=== PATIENT | female | born 1950 | race Caucasian/White ===

== ENCOUNTER → 2017-12-23 | Outpatient (CLI) | payer MEDICARE, BC ==
[~2017-12-23] MED LIST: CALC-534 PO; CHOL200059 PO; GLUC500T11 PO; KRIL500C PO; LIDOCAINE 1%-EPI 1:100K, 20ML ONE; ROSU5TAB PO; SODIUM BICARBONATE 4.0%, 5ML ONE; TRIA1CAP PO
== END | disposition home or self-care (01) ==
LOC: CFH 08:21
PROVIDERS: ATTEND Surgery
DX: C50.212 Malignant neoplasm of upper-inner quadrant of left female breast (principal); R59.1 Generalized enlarged lymph nodes
CPT/HCPCS: 19285; 77065; J3490

== ENCOUNTER 2017-12-27 09:03 | Day surgery (SDC) | payer MEDICARE, BC ==
[~2017-12-27] VITALS: Ht 165.1 cm; Wt 81.1 kg
[~2017-12-27 09:03] MED LIST changes: +BUPIVACAINE/PF-EPI 0.5% 1:200K ONE; -CALC-534 PO; -CHOL200059 PO; -GLUC500T11 PO; +ISOSULFAN BLUE 10 MG/ML, 5ML IV ONE; -KRIL500C PO; -LIDOCAINE 1%-EPI 1:100K, 20ML ONE; -ROSU5TAB PO; -SODIUM BICARBONATE 4.0%, 5ML ONE; -TRIA1CAP PO
[2017-12-27] MEDS ORDERED: LACTATED RINGERS 1,000 ML IV SCH (10:10)
[2017-12-27 10:21] VITALS: BP 132/84
[2017-12-27] MEDS ORDERED: GABAPENTIN 300 MG CAPSULE PO ONE (10:30)
[2017-12-27] MEDS ORDERED: OXYcodone IR 5MG TABLET PO ONE (10:30)
[2017-12-27] MEDS ORDERED: SCOPOLAMINE PATCH, 1.5MG PATCH.TD72 TD ONE (10:30)
[2017-12-27] MEDS ORDERED: ACETAMINOPHEN 500 MG TABLET PO ONE (10:30)
[2017-12-27] MEDS ORDERED: KRIL500C PO (10:38)
[2017-12-27] MEDS ORDERED: ROSU5TAB PO (10:38)
[2017-12-27] MEDS ORDERED: TRIA1CAP PO (10:38)
[2017-12-27] MEDS ORDERED: CALC-534 PO (10:38)
[2017-12-27] MEDS ORDERED: GLUC500T11 PO (10:38)
[2017-12-27] MEDS ORDERED: CHOL200059 PO (10:38)
[2017-12-27] MEDS ORDERED: FENTANYL PF 250 MCG/5ML ONE (12:08)
[2017-12-27] MEDS ORDERED: hydrALAzine 20 MG/ML, 1ML IV PRN (13:30)
[2017-12-27] MEDS ORDERED: LABETALOL 5MG/ML, 20ML IV PRN (13:30)
[2017-12-27] MEDS ORDERED: HALOPERIDOL 5 MG/ML IV PRN (13:30)
[2017-12-27] MEDS ORDERED: DIPHENHYDRAMINE 50 MG/ML, 1ML IVPush PRN (13:30)
[2017-12-27] MEDS ORDERED: PROMETHAZINE 25 MG/ML, 1ML IV PRN (13:30)
[2017-12-27] MEDS ORDERED: FENTANYL PF 100 MCG/2ML IV PRN (13:30)
[2017-12-27] MEDS ORDERED: OXYcodone 5 MG/5 ML ORAL.SOL UDC PO PRN (13:30)
[2017-12-27] MEDS ORDERED: PROCHLORPERAZINE 5 MG/ML, 2ML IV PRN (13:30)
[2017-12-27] MEDS ORDERED: HYDROmorphone 1 MG/ML, 1ML IV PRN (13:30)
[2017-12-27] MEDS ORDERED: MEPERIDINE/PF 25MG/0.5ML IVPush PRN (13:30)
[2017-12-27] MEDS ORDERED: SUCCINYLCHOLINE 20 MG/ML, 10ML ONE (13:32)
[2017-12-27] MEDS ORDERED: CEFAZOLIN 1,000 MG ONE (13:32)
[2017-12-27] MEDS ORDERED: ROCURONIUM 10MG/ML,5ML ONE (13:32)
[2017-12-27] MEDS ORDERED: ONDANSETRON 2MG/ML, 2ML ONE (13:32)
[2017-12-27] MEDS ORDERED: GLYCOPYRROLATE 0.2MG/1ML, 5ML ONE (13:32)
[2017-12-27] MEDS ORDERED: PROPOFOL 10 MG/ML, 20ML ONE (13:32)
[2017-12-27] MEDS ORDERED: NEOSTIGMINE 1 MG/ML, 10ML ONE (13:32)
[2017-12-27] MEDS ORDERED: DEXAMETHASONE 4 MG/ML, 1ML ONE (13:32)
== END 2017-12-27 15:39 | disposition home or self-care (01) ==
LOC: OUT 09:03 → EDSTATUS 12:00 → OUT 15:39
PROVIDERS: ATTEND Surgery
DX: C50.212 Malignant neoplasm of upper-inner quadrant of left female breast (principal); R59.1 Generalized enlarged lymph nodes; F41.9 Anxiety disorder, unspecified; F32.9 Major depressive disorder, single episode, unspecified; Z90.49 Acquired absence of other specified parts of digestive tract; Z98.890 Other specified postprocedural states; Z72.89 Other problems related to lifestyle; Z87.891 Personal history of nicotine dependence; Z88.1 Allergy status to other antibiotic agents; Z88.8 Allergy status to other drugs, medicaments and biological substances
CPT/HCPCS: 19301; 38525; 38792; 88307; 93005; A9541; J0330; J0690; J1100; J2405; J2704; J2710; J3010; J3490; J7120

== ENCOUNTER → 2018-01-12 | Outpatient (CLI) | payer MEDICARE, BC ==
[~2018-01-12] MED LIST changes: -BUPIVACAINE/PF-EPI 0.5% 1:200K ONE; +CALC-534 PO; +CHOL200059 PO; +GLUC500T11 PO; -ISOSULFAN BLUE 10 MG/ML, 5ML IV ONE; +KRIL500C PO; +ROSU5TAB PO; +TRIA1CAP PO
== END | disposition home or self-care (01) ==
LOC: ROC 10:56
PROVIDERS: ATTEND Radiology Radiation Oncology
DX: C50.412 Malignant neoplasm of upper-outer quadrant of left female breast (principal); Z88.1 Allergy status to other antibiotic agents
CPT/HCPCS: 99214; G0463

== ENCOUNTER → 2018-03-11 | Outpatient (CLI) | payer MEDICARE, BC | END | disposition home or self-care (01) | LOC: ROC 07:19 | PROVIDERS: ATTEND Radiology Radiation Oncology | DX: C50.412 Malignant neoplasm of upper-outer quadrant of left female breast (principal) | CPT/HCPCS: G0463 ==

== ENCOUNTER → 2018-04-05 | Outpatient (CLI) | payer MEDICARE, BC | END | disposition home or self-care (01) | LOC: EDSTATUS 03-23 08:56 → ROC 07:15 | PROVIDERS: ATTEND Radiology Radiation Oncology | DX: C50.412 Malignant neoplasm of upper-outer quadrant of left female breast (principal) | CPT/HCPCS: G0463 ==

== ENCOUNTER 2018-06-28 14:35 | Outpatient (CLI) | payer MEDICARE, BC | END 2018-06-28 23:59 | disposition home or self-care (01) | LOC: CFH 14:35 | PROVIDERS: ATTEND Radiology Radiation Oncology | DX: C50.412 Malignant neoplasm of upper-outer quadrant of left female breast (principal); N64.4 Mastodynia | CPT/HCPCS: 77066; G0279 ==

== ENCOUNTER → 2018-07-01 | Outpatient (CLI) | payer MEDICARE, BC | END | disposition home or self-care (01) | LOC: ROC 07:57 | PROVIDERS: ATTEND Radiology Radiation Oncology | DX: C50.412 Malignant neoplasm of upper-outer quadrant of left female breast (principal); Z88.0 Allergy status to penicillin; Z88.8 Allergy status to other drugs, medicaments and biological substances | CPT/HCPCS: G0463 ==

== ENCOUNTER 2018-12-22 09:41 | Outpatient (CLI) | payer MEDICARE, BC | END 2018-12-22 23:59 | disposition home or self-care (01) | LOC: ROC 09:41 | PROVIDERS: ATTEND Radiology Radiation Oncology | DX: C50.919 Malignant neoplasm of unspecified site of unspecified female breast (principal) | CPT/HCPCS: 99213; G0463 ==

== ENCOUNTER 2020-06-26 08:47 | Outpatient (CLI) | payer MEDICARE, BC | END 2020-06-26 23:59 | disposition home or self-care (01) | LOC: ROC 08:47 | PROVIDERS: ATTEND Radiology Radiation Oncology | DX: Z08 Encounter for follow-up examination after completed treatment for malignant neoplasm (principal); Z85.3 Personal history of malignant neoplasm of breast | CPT/HCPCS: G0463 ==